=== PATIENT | male | born 1975 | race Caucasian/White ===

== ENCOUNTER 2017-01-31 | Emergency (ER) | payer OTHER ==
--- NOTE | 2017-01-31 02:51 | ED ORDER SUMMARY ---
..... Patient: ABHISHEK ROJO OrderSheet [facility] VisitID: [id number] [address] [place] [address] 42y, M Registration Date/Time: 01/31/2017 ORDER SHEET Weight: 196.4 kg (stated) Allergies: BENADRYL CREAM, PCN, Sulfa Antibiotics, Sertraline GENERAL ORDERS: MEDICATION ORDERS: Vistaril PO 50 mg (NOW) (02:11 01/31/2017 Damion Silva) (Ack 2:21 Mehdi R.N.) (2:25 Mehdi R.N.) IV FLUIDS: ORDER SHEET NOTES: [Electronically signed by Maria L Donahue R.N. (03:01 01/31/2017)] [Electronically signed by Michael Arnold Dr. (05:58 02/01/2017)] [Electronically locked/signed by Maria L Donahue R.N. (03:01 01/31/2017)]
--- NOTE | 2017-01-31 02:51 | ED ORDER SUMMARY ---
..... Patient: ABHISHEK ROJO OrderSheet [facility] VisitID: [id number] [address] [place] [address] 42y, M Registration Date/Time: 01/31/2017 ORDER SHEET Weight: 196.4 kg (stated) Allergies: BENADRYL CREAM, PCN, Sulfa Antibiotics, Sertraline GENERAL ORDERS: MEDICATION ORDERS: Vistaril PO 50 mg (NOW) (02:11 01/31/2017 Damion Silva) (Ack 2:21 Mehdi R.N.) (2:25 Mehdi R.N.) IV FLUIDS: ORDER SHEET NOTES: [Electronically signed by Maria L Donahue R.N. (03:01 01/31/2017)] [Electronically signed by Michael Arnold Dr. (05:58 02/01/2017)] [Electronically locked/signed by Maria L Donahue R.N. (03:01 01/31/2017)]
--- NOTE | 2017-01-31 02:51 | ED CLINICAL REPORT ---
Clinical Report - Physicians/Mid Levels [facility] [address] [place] [address] 01/31/2017 0:04 Patient: ABHISHEK ROJO Time Seen: 01:49; initial patient contact. Arrived- By private vehicle. Historian- patient. HISTORY OF PRESENT ILLNESS Chief Complaint: DYSPNEA and HISTORY OF ASTHMA. This started yesterday and is still present. It was gradual in onset. The dyspnea is described as mild. He has not had worsening of dyspnea with walking or exertion. No improvement of dyspnea with rest. The patient has had a cough. No sputum production, fever, sweating episodes, wheezing or chills. No dyspnea on exertion, chest pain or discomfort, calf pain or foot swelling. No anxiety, dizziness or palpitations. Similar symptoms previously: None. Recent medical care: The patient was seen recently in a clinic. ( On Abx for sinus infection). REVIEW OF SYSTEMS The patient has had a nasal discharge, sinus drainage, eye irritation, eye irritation and photophobia. No sore throat, nausea or vomiting. All systems otherwise negative, except as recorded above. PAST HISTORY Migraine Headache. Depression. Back Pain. Hypercholesterolemia. Asthma. Hypertension. Gastroesophageal Reflux Disease. ADDITIONAL SURGERIES: Adenoidectomy. Toe. Tympanostomy Tubes. Medications: Topamax Oral 100 mg, daily. Albuterol Sulfate HFA Inhalation. Lovastatin Oral 20 mg, daily. BuPROPion HCl Oral 150 mg (SR). Hydrocodone-Acetaminophen Oral 5 mg/500mg, 2 tabs, daily as needed. Antibiotic 1 pill, 2x a day, sinus and mouth infection, started yesterday. Allergies: BENADRYL CREAM. PCN. Sertraline. Sulfa Antibiotics. SOCIAL HISTORY Current some days smoker. Occasional alcohol use. No drug use. ADDITIONAL NOTES The nursing notes have been reviewed. PHYSICAL EXAM Vital Signs: 01/31/2017 01:50 BP: 141/84. HR: 75. RR: 15. O2 saturation: 97%. Temp: 97.9 F. Monroe-Kendrick pain scale: 4/10. Have been reviewed. Hypertensive. Heart rate normal. Respiratory rate normal. Temperature normal. Oxygen saturation normal. Appearance: Alert. No acute distress. Rt Eye: Right eye exam normal. Lt Eye: Eyelid edema. Moderately injected conjunctiva. Moderate exudate present. CVS: Normal heart rate and rhythm. Heart sounds normal. Respiratory: No respiratory distress. Breath sounds normal. Extremities: No lower extremity edema. Neuro: Oriented X 3. PROGRESS AND PROCEDURES Disposition: Discharged home in good and improved condition. Condition: good. CLINICAL IMPRESSION Acute mucopurulent and bacterial conjunctivitis of the left eye. Chronic seasonal allergic rhinitis. INSTRUCTIONS Your Current Medications: CONTINUE TAKING THE FOLLOWING MEDICATIONS: Albuterol Sulfate HFA Inhalation. Antibiotic* : 1 pill 2x a day, Started: yesterday, sinus and mouth infection. BuPROPion HCl Oral : 150 mg, SR. Hydrocodone-Acetaminophen Oral : 5 mg/500mg, 2 tabs daily, prn. Lovastatin Oral : 20 mg daily. Topamax Oral : 100 mg daily. Prescription Medications: Polytrim ophthalmic solution: instill 1 drop into the affected eye every 3 hours while awake for 7 days. Dispense five (5) mL. No refill. Substitution is permissible. Flonase nasal spray: 2 sprays to each nostril daily. Dispense one (1) unit. No refills. Substitution is permissible Follow-up: Follow up with your doctor in about two days. Call for an appointment. Screening today revealed the patient's blood pressure to be in the hypertensive range. The patient should follow up with a primary care provider for blood pressure management. (Electronically signed by Michael Arnold Dr. 02/01/2017 5:58)
--- NOTE | 2017-01-31 02:51 | ED NURSING NOTES ---
Clinical Report - Nurses [facility] [address] [place] [address] 01/31/2017 0:04 Patient: ABHISHEK ROJO TRIAGE Triage time 01:50. Acuity: LEVEL 4. Chief Complaint: (left eye swelling. dizziness (on-going problem but worse today)). Alert. No acute distress. --02:02 Maria L Donahue R.N. 01:50 01/31/17. BP: 141/84. HR: 75. RR: 15 (regular and unlabored). O2 saturation: 97% on room air. Temp: 97.9 F (oral). Mnoroe-Kendrick pain scale: 4/10. --02:02 Maria L Donahue R.N. Weight: 196.4 kg stated. Height/Length: 73 inches Per Patient. BMI: 57.1. --02:01 Maria L Donahue R.N. Medications Antibiotic 1 pill, 2x a day, sinus and mouth infection, started yesterday. --01:56 Maria L Donahue R.N. BuPROPion HCl Oral 150 mg (SR). Hydrocodone-Acetaminophen Oral 5 mg/500mg, 2 tabs, daily as needed. --01:58 Maria L Donahue R.N. Lovastatin Oral 20 mg, daily. --01:58 Maria L Donahue R.N. Albuterol Sulfate HFA Inhalation. --01:58 Maria L Donahue R.N. Topamax Oral 100 mg, daily. --01:59 Maria L Donahue R.N. Allergies BENADRYL CREAM. PCN. Sulfa Antibiotics. --01:59 Maria L Donahue R.N. Sertraline. --01:59 Maria L Donahue R.N. History Arrived by private vehicle. Historian: patient. Accompanied by family. [facility] PAST MEDICAL HX: Immunizations: up-to-date. SOCIAL HX: Smoker- current status unknown (hookcarol ann). Occasional alcohol use. No drug use. FUNCTIONAL ASSESSMENT: Functional assessment performed: uses cane. --02: Maria L Donahue R.N. PROBLEMS: Migraine Headache. Depression. Back Pain. Hypercholesterolemia. Asthma. Hypertension. Gastroesophageal Reflux Disease. --02:00 Maria L Donahue R.N. ADDITIONAL SURGERIES: Adenoidectomy. Toe. Tympanostomy Tubes. --02:00 Maria L Donahue R.N. Interventions ID band on patient. To treatment room. --02: Maria L Donahue R.N. PHYSICAL ASSESSMENT To room via wheelchair. Patient gowned. GENERAL / NEURO / PSYCH: Alert. Oriented X 4. Appears in no acute distress. HEENT: Mucous membranes are pink. RESPIRATORY: Respirations not labored. CVS: Capillary refill less than 2 seconds. --02: Maria L Donahue R.N. NURSING PROGRESS NOTES Head of bed elevated. Two patient identifiers checked. Call light placed in reach. Side rails up x 1. Bed placed in lowest position. Brakes of bed on. --02: Maria L Donahue R.N. Patient ready for evaluation- chart flagged. --02: Maria L Donahue R.N. 02:25 01/31/2017 Vistaril (HydrOXYzine Pamoate) PO Capsules 50 mg given. Allergies verified, confirmed 5 rights and sedative warning given to the patient. --02:25 Maria L Donahue R.N. DISPOSITION / DISCHARGE 03:00 01/31/17. BP: 124/80. HR: 77. RR: 15. O2 saturation: 96% on room air. Temp: deferred. Monroe-Kendrick pain scale: 2/10. --03:00 Maria L Donahue R.N. Condition at departure: improved. No learning barriers present. Discharge instructions provided and reviewed with the patient. Reviewed medication(s) side effects, precautions, dosing and course information. Prescription(s) given to the patient. Patient verbalized understanding. Written instructions provided in Danish. The patient was discharged home and accompanied by environmental project manager. He left the Emergency Department ambulatory and via private vehicle. Casino Floorperson driving. --03:01 Maria L Donahue R.N. Locked/Released at 01/31/2017 3:01 by Maria L Donahue R.N.
--- NOTE | 2017-01-31 02:51 | ED NURSING NOTES ---
Clinical Report - Nurses [facility] [address] [place] [address] 01/31/2017 0:04 Patient: ABHISHEK ROJO TRIAGE Triage time 01:50. Acuity: LEVEL 4. Chief Complaint: (left eye swelling. dizziness (on-going problem but worse today)). Alert. No acute distress. --02:02 Maria L Donahue R.N. 01:50 01/31/17. BP: 141/84. HR: 75. RR: 15 (regular and unlabored). O2 saturation: 97% on room air. Temp: 97.9 F (oral). Monroe-Kendrick pain scale: 4/10. --02:02 Maria L Donahue R.N. Weight: 196.4 kg stated. Height/Length: 73 inches Per Patient. BMI: 57.1. --02:01 Maria L Donahue R.N. Medications Antibiotic 1 pill, 2x a day, sinus and mouth infection, started yesterday. --01:56 Maria L Donahue R.N. BuPROPion HCl Oral 150 mg (SR). Hydrocodone-Acetaminophen Oral 5 mg/500mg, 2 tabs, daily as needed. --01:58 Maria L Donahue R.N. Lovastatin Oral 20 mg, daily. --01:58 Maria L Donahue R.N. Albuterol Sulfate HFA Inhalation. --01:58 Maria L Donahue R.N. Topamax Oral 100 mg, daily. --01:59 Maria L Donahue R.N. Allergies BENADRYL CREAM. PCN. Sulfa Antibiotics. --01:59 Maria L Donahue R.N. Sertraline. --01:59 Maria L Donahue R.N. History Arrived by private vehicle. Historian: patient. Accompanied by family. [facility] PAST MEDICAL HX: Immunizations: up-to-date. SOCIAL HX: Smoker- current status unknown (hookcarol ann). Occasional alcohol use. No drug use. FUNCTIONAL ASSESSMENT: Functional assessment performed: uses cane. --02: Maria L Donahue R.N. PROBLEMS: Migraine Headache. Depression. Back Pain. Hypercholesterolemia. Asthma. Hypertension. Gastroesophageal Reflux Disease. --02:00 Maria L Donahue R.N. ADDITIONAL SURGERIES: Adenoidectomy. Toe. Tympanostomy Tubes. --02:00 Maria L Donahue R.N. Interventions ID band on patient. To treatment room. --02: Maria L Donahue R.N. PHYSICAL ASSESSMENT To room via wheelchair. Patient gowned. GENERAL / NEURO / PSYCH: Alert. Oriented X 4. Appears in no acute distress. HEENT: Mucous membranes are pink. RESPIRATORY: Respirations not labored. CVS: Capillary refill less than 2 seconds. --02: Maria L Donahue R.N. NURSING PROGRESS NOTES Head of bed elevated. Two patient identifiers checked. Call light placed in reach. Side rails up x 1. Bed placed in lowest position. Brakes of bed on. --02: Maria L Donahue R.N. Patient ready for evaluation- chart flagged. --02: Maria L Donahue R.N. 02:25 01/31/2017 Vistaril (HydrOXYzine Pamoate) PO Capsules 50 mg given. Allergies verified, confirmed 5 rights and sedative warning given to the patient. --02:25 Maria L Donahue R.N. DISPOSITION / DISCHARGE 03:00 01/31/17. BP: 124/80. HR: 77. RR: 15. O2 saturation: 96% on room air. Temp: deferred. Monroe-Kendrick pain scale: 2/10. --03:00 Maria L Donahue R.N. Condition at departure: improved. No learning barriers present. Discharge instructions provided and reviewed with the patient. Reviewed medication(s) side effects, precautions, dosing and course information. Prescription(s) given to the patient. Patient verbalized understanding. Written instructions provided in Thai. The patient was discharged home and accompanied by manager office. He left the Emergency Department ambulatory and via private vehicle. Vice President Underwriting driving. --03:01 Maria L Donahue R.N. Locked/Released at 01/31/2017 3:01 by Maria L Donahue R.N.
--- NOTE | 2017-02-01 05:59 | ED MED RECONCILIATION SUMMARY ---
Patient: ABHISHEK ROJO Medication Reconciliation Report [facility] VisitID: [id number] [address] [place] [address] 42y, M Registration Date/Time: 01/31/2017 Weight: 196.4 kg Height/Length: 73 in. BMI: 57.1 ALLERGIES: BENADRYL CREAM, PCN, Sertraline, Sulfa Antibiotics The patient's Home Medications are listed below: CONTINUE TAKING THE FOLLOWING MEDICATIONS: Albuterol Sulfate HFA Inhalation Antibiotic 1 pill, 2x a day, sinus and mouth infection BuPROPion HCl Oral 150 mg, SR Hydrocodone-Acetaminophen Oral 5 mg/500mg, 2 tabs, daily Lovastatin Oral 20 mg, daily Topamax Oral 100 mg, daily The source(s) of the original Home Medication information: Not obtained. The following Medications were given to the patient in the Emergency Department: Vistaril [PO] PO 50 mg, administered: 01/31/2017 2:25:00 AM The following Medications were prescribed to the patient: Polytrim ophthalmic solution: instill 1 drop into the affected eye every 3 hours while awake for 7 days. Dispense five (5) mL. No refill. Substitution is permissible. -- Michael Arnold Dr. Flonasmelissa nasal spray: 2 sprays to each nostril daily. Dispense one (1) unit. No refills. Substitution is permissible -- Michael Arnold Dr.
--- NOTE | 2017-02-01 05:59 | ED MED RECONCILIATION SUMMARY ---
Patient: ABHISHEK ROJO Medication Reconciliation Report [facility] VisitID: [id number] [address] [place] [address] 42y, M Registration Date/Time: 01/31/2017 Weight: 196.4 kg Height/Length: 73 in. BMI: 57.1 ALLERGIES: BENADRYL CREAM, PCN, Sertraline, Sulfa Antibiotics The patient's Home Medications are listed below: CONTINUE TAKING THE FOLLOWING MEDICATIONS: Albuterol Sulfate HFA Inhalation Antibiotic 1 pill, 2x a day, sinus and mouth infection BuPROPion HCl Oral 150 mg, SR Hydrocodone-Acetaminophen Oral 5 mg/500mg, 2 tabs, daily Lovastatin Oral 20 mg, daily Topamax Oral 100 mg, daily The source(s) of the original Home Medication information: Not obtained. The following Medications were given to the patient in the Emergency Department: Vistaril [PO] PO 50 mg, administered: 01/31/2017 2:25:00 AM The following Medications were prescribed to the patient: Polytrim ophthalmic solution: instill 1 drop into the affected eye every 3 hours while awake for 7 days. Dispense five (5) mL. No refill. Substitution is permissible. -- Michael Arnold Dr. Flonasmelissa nasal spray: 2 sprays to each nostril daily. Dispense one (1) unit. No refills. Substitution is permissible -- Michael Arnold Dr.
--- NOTE | 2017-02-01 05:59 | ED MAR SUMMARY ---
..... Medication Administration Record [facility] [address] [place] [address] Patient: ABHISHEK ROJO Visit ID: [id number] 42y, M Weight: 196.4 kg Height/Length: 73 in BMI: 57.1 ALLERGIES: Sertraline, BENADRYL CREAM, PCN, Sulfa Antibiotics Given 02:25 01/31/2017 Maria L Donahue R.N. Medication Administered: VISTARIL [PO] (HYDROXYZINE PAMOATE), Dose: 50 mg Capsules PO. Medication Ordered: Vistaril PO 50 mg (NOW).
--- NOTE | 2017-02-01 05:59 | ED MAR SUMMARY ---
..... Medication Administration Record [facility] With [facility] [address] [place] [address] Patient: ABHISHEK ROJO Visit ID: [id number] 42y, M Weight: 196.4 kg Height/Length: 73 in BMI: 57.1 ALLERGIES: Sertraline, BENADRYL CREAM, PCN, Sulfa Antibiotics Given 02:25 01/31/2017 Maria L Donahue R.N. Medication Administered: VISTARIL [PO] (HYDROXYZINE PAMOATE), Dose: 50 mg Capsules PO. Medication Ordered: Vistaril PO 50 mg (NOW).
--- NOTE | 2017-02-01 05:59 | ED DISCHARGE INSTRUCTIONS ---
Patient: ABHISHEK ROJO General Instructions [facility] VisitID: [id number] [place] [address] 42y, M Registration Date/Time: 01/31/2017 Chronic seasonal allergic rhinitis. INSTRUCTIONS Your Current Medications: CONTINUE TAKING THE FOLLOWING MEDICATIONS: Albuterol Sulfate HFA Inhalation. Antibiotic* : 1 pill 2x a day, Started: yesterday, sinus and mouth infection. BuPROPion HCl Oral : 150 mg, SR. Hydrocodone-Acetaminophen Oral : 5 mg/500mg, 2 tabs daily, prn. Lovastatin Oral : 20 mg daily. Topamax Oral : 100 mg daily. Prescription Medications: Polytrim ophthalmic solution: instill 1 drop into the affected eye every 3 hours while awake for 7 days. Dispense five (5) mL. No refill. Substitution is permissible. Flonase nasal spray: 2 sprays to each nostril daily. Dispense one (1) unit. No refills. Substitution is permissible Follow-up: Follow up with your doctor in about two days. Call for an appointment. Screening today revealed the patient's blood pressure to be in the hypertensive range. The patient should follow up with a primary care provider for blood pressure management. ADDITIONAL INFORMATION Nasal Allergy Nasal Allergy, also called Allergic Rhinitis occurs after exposure to pollen, molds, mildew, animal dander (scales from animal skin, hair and feathers), dust, smoke and fumes. (These are called allergens). When pollen causes a nasal allergy it is commonly called Hay Fever. When these particles contact the lining of the nose, eyes, eyelids, sinuses or throat, they cause the cells to release a chemical called histamine. Histamine may cause a watery discharge from the eyes or nose. It may also cause violent sneezing, nasal congestion, itching of the eyes, nose, throat and mouth. Prevention: Nasal allergy cannot be cured but symptoms can be reduced. Avoid or reduce exposure to the allergen when possible, by the following measures: POLLEN Stay indoors on hot windy days during pollen season Keep windows and doors closed Use an air conditioner with an electrostatic filter DUST, MOLD & MILDEW Follow these measures, especially in the bedroom: When cleaning use vacuum lucerne farmer, oiled mops and damp cloths; dont stir up the dust. Once a week clean the wilkins, woodwork and floors with a damp mop and vacuum carpets. Once a year clean the bed frame and springs (do this outside). Cover the box springs with plastic. Do not use mattress pads. Remove stuffed chairs and rugs from the bedroom. Discard old moldy books, furniture and bedding. Use synthetic fabrics for furniture, curtains and bedding. Avoid quilts, comforters, and stuffed toys. ANIMAL DANDER Remove all indoor pets (except fish and reptiles). Avoid all contact with furry animals. Avoid down-stuffed pillows and coats. Some persons are also sensitive to wool and should avoid it. OTHER IRRITANTS Do not smoke and avoid the smoke of others. Some persons are sensitive to cosmetic powder, baby powder and powdered laundry detergents. Therefore, these powders should be avoided. Home Care: DECONGESTANT pills and sprays (Sudafed, NeoSynephrine, Afrin), reduce tissue swelling and watery discharge. Overuse of nasal decongestant sprays may make symptoms worse. Do not use these more often than recommended. ANTIHISTAMINES block the release of histamine during the allergic response. Antihistamines are more effective when taken BEFORE symptoms develop. Unless a prescription antihistamine was prescribed, you may take CLARITIN (loratadine). (Claritin is an [id number] antihistamine that does not cause drowsiness.) STEROID nasal sprays (Beconase, Vancenase, Nasalide) or oral steroids (Prednisone) may also be prescribed for more severe symptoms. These help to reduce the local inflammation which adds to the allergic response. If you have ASTHMA, pollen season may make your asthma symptoms worse. It is important that you use your asthma medicines as directed during this time to prevent or treat attacks. Some persons with asthma have a worsening of their asthma symptoms when taking antihistamines. If you notice this, stop the antihistamines and notify your doctor. Follow Up with your doctor or as directed by our staff if your symptoms are not improving with the treatment advised. Get Prompt Medical Attention if any of the following occur: Facial or sinus pain or colored drainage from the nose Severe headache or ear pain Fever of 100.4F (38C) or higher, or as directed by your healthcare provider Wheezing or trouble breathing (If you already know you have asthma, return if your asthma symptoms do not respond to the usual doses of your medicine) Cough with lots of colored sputum (mucus) Conjunctivitis, Bacterial You have a bacterial infection in the membranes covering the eye. The most common symptoms include a thick discharge from the eye, swollen eyelids, redness, eyelids sticking together upon awakening, and a gritty or scratchy feeling in the eye. The infection takes about 7-10 days to resolve with treatment. Home Care: Use prescribed eyedrops or ointment as directed to treat the infection. Apply a warm pack (towel soaked in warm water) to the affected eye 3-4 times a day. Do this just before applying medicine to the eye. Use a warm, wet cloth to wipe away crusting of the eyelids in the morning. This is caused by mucus drainage during the night. You may also use saline irrigating solution or artificial tears to rinse away mucus inside the eye. Do not put a patch over the eye. Wash your hands before and after touching the infected eye. This is to prevent spreading the infection to the other eye, and to other people. Do not share your towels or washcloths with others. You may use acetaminophen (Tylenol) or ibuprofen (Motrin, Advil) to control pain, unless another medicine was prescribed. [NOTE: If you have chronic liver or kidney disease or ever had a stomach ulcer or GI bleeding, talk with your doctor before using these medicines.] Do not wear contact lenses until your eyes have healed and all symptoms are gone. Follow Up with your doctor or this facility as directed, or if there has not been improvement within 5 days. Get Prompt Medical Attention if any of the following occur: Worsening vision Increasing pain in the eye Increasing swelling or redness of the eyelid Redness spreading around the eye Trimethoprim Sulfate, Polymyxin B Sulfate Eye drops, solution What is this medicine? POLYMYXIN B and TRIMETHOPRIM (shar i MIX in B and trye METH oh prim) eye drops treat certain eye infections caused by bacteria. How should I use this medicine? This medicine is used in the eye. Follow the directions on the prescription label. Wash your hands before and after use. Tilt your head back slightly. Pull your lower eyelid down gently to form a pouch. Do not touch the tip of the dropper to your eye, fingertips, or other surface. Squeeze the prescribed number of drops into the pouch. Close the eye gently to spread the drops. Use your medicine at regular intervals. Do not take your medicine more often than directed. Use all of your medicine as directed even if you think your are better. Do not skip doses or stop your medicine early. Talk to your noodle maker regarding the use of this medicine in children. While this drug may be prescribed for children and infants for selected conditions, precautions do apply. What side effects may I notice from receiving this medicine? Side effects that you should report to your doctor or health child care specialist as soon as possible: burning, stinging, or swelling change in vision or blurred vision that will not go away eye pain itching and redness rash Side effects that usually do not require medical attention (report to your doctor or health child care specialist if they continue or are bothersome): temporary blurred vision after applying temporary watering or stinging What may interact with this medicine? Interactions are not expected. Do not use any other eye products without advice of your doctor or health child care specialist. What if I miss a dose? If you miss a dose, use it as soon as you can. If it is almost time for your next dose, use only that dose. Do not use double or extra doses. Where should I keep my medicine? Keep out of the reach of children. Store at room temperature 15 to 25 degrees C (59 to 77 degrees F). Protect from light. To prevent the spread of infection, it is best to throw away any unused eye drops after you finish the course of treatment. Throw away any unused medicine after the expiration date. What should I tell my health care provider before I take this medicine? They need to know if you have any of these conditions: wear contact lenses an unusual or allergic reaction to polymyxin B, trimethoprim, other medicines, foods, dyes, or preservatives or trying to get breast-feeding What should I watch for while using this medicine? Check with your doctor or health child care specialist if your condition does not get better after 5 days, or if it gets worse. If you wear contact lenses, ask when you can use your lenses again. A burning or stinging reaction that does not go away may mean you are allergic to this product. Stop use and call your doctor or health child care specialist. To prevent the spread of infection, do not share eye products or other personal items with anyone else. Fluticasone Propionate Nasal spray, solution What is this medicine? FLUTICASONE (floo TIK a sone) is a corticosteroid. It helps decrease inflammation in your nose. This medicine is used to treat the symptoms of allergies like sneezing, itching, and runny or stuffy nose. How should I use this medicine? This medicine is for use in the nose. Follow the directions on your prescription label. This medicine works best if used regularly. Do not use more often than directed. Make sure that you are using your nasal spray correctly. Ask you doctor or health care provider if you have any questions. Talk to your noodle maker regarding the use of this medicine in children. While this drug may be prescribed for children as young as 4 years old for selected conditions, precautions do apply. What side effects may I notice from receiving this medicine? Side effects that you should report to your doctor or health child care specialist as soon as possible: allergic reactions like skin rash, itching or hives, swelling of the face, lips, or tongue changes in vision flu-like symptoms white patches or sores in the mouth or nose Side effects that usually do not require medical attention (report to your doctor or health child care specialist if they continue or are bothersome): burning or irritation inside the nose or throat cough headache nosebleed unusual taste or smell What may interact with this medicine? ketoconazole metyrapone some medicines for HIV vaccines What if I miss a dose? If you miss a dose, use it as soon as you remember. If it is almost time for your next dose, use only that dose and continue with your regular schedule. Do not use double or extra doses. Where should I keep my medicine? Keep out of the reach of children. Store at room temperature between 15 and 30 degrees C (59 and 86 degrees F). Throw away any unused medicine after the expiration date. What should I tell my health care provider before I take this medicine? They need to know if you have any of these conditions: infection, like tuberculosis, herpes, or fungal infection recent surgery on nose or sinuses taking corticosteroid by mouth an unusual or allergic reaction to fluticasone, steroids, other medicines, foods, dyes, or preservatives or trying to get breast-feeding What should I watch for while using this medicine? Visit your doctor or health child care specialist for regular checks on your progress. Some symptoms may improve within 12 hours after starting use. Check with your doctor or health child care specialist if there is no improvement in your condition after 3 weeks of use. Do not come in contact with people who have chickenpox or the measles while you are taking this medicine. If you do, call your doctor right away. You have been given the following additional information: Allergic Rhinitis Conjunctivitis, Bacterial Trimethoprim Sulfate, Polymyxin B Sulfate Eye drops, solution Fluticasone Propionate Nasal spray, solution (Electronically signed by Michael Arnold Dr. 02/01/2017 5:58)
--- NOTE | 2017-02-01 05:59 | ED DISCHARGE INSTRUCTIONS ---
Patient: ABHISHEK ROJO General Instructions [facility] VisitID: [id number] [place] [address] 42y, M Registration Date/Time: 01/31/2017 Chronic seasonal allergic rhinitis. INSTRUCTIONS Your Current Medications: CONTINUE TAKING THE FOLLOWING MEDICATIONS: Albuterol Sulfate HFA Inhalation. Antibiotic* : 1 pill 2x a day, Started: yesterday, sinus and mouth infection. BuPROPion HCl Oral : 150 mg, SR. Hydrocodone-Acetaminophen Oral : 5 mg/500mg, 2 tabs daily, prn. Lovastatin Oral : 20 mg daily. Topamax Oral : 100 mg daily. Prescription Medications: Polytrim ophthalmic solution: instill 1 drop into the affected eye every 3 hours while awake for 7 days. Dispense five (5) mL. No refill. Substitution is permissible. Flonase nasal spray: 2 sprays to each nostril daily. Dispense one (1) unit. No refills. Substitution is permissible Follow-up: Follow up with your doctor in about two days. Call for an appointment. Screening today revealed the patient's blood pressure to be in the hypertensive range. The patient should follow up with a primary care provider for blood pressure management. ADDITIONAL INFORMATION Nasal Allergy Nasal Allergy, also called Allergic Rhinitis occurs after exposure to pollen, molds, mildew, animal dander (scales from animal skin, hair and feathers), dust, smoke and fumes. (These are called allergens). When pollen causes a nasal allergy it is commonly called Hay Fever. When these particles contact the lining of the nose, eyes, eyelids, sinuses or throat, they cause the cells to release a chemical called histamine. Histamine may cause a watery discharge from the eyes or nose. It may also cause violent sneezing, nasal congestion, itching of the eyes, nose, throat and mouth. Prevention: Nasal allergy cannot be cured but symptoms can be reduced. Avoid or reduce exposure to the allergen when possible, by the following measures: POLLEN Stay indoors on hot windy days during pollen season Keep windows and doors closed Use an air conditioner with an electrostatic filter DUST, MOLD & MILDEW Follow these measures, especially in the bedroom: When cleaning use vacuum theater projectionist, oiled mops and damp cloths; dont stir up the dust. Once a week clean the wilkins, woodwork and floors with a damp mop and vacuum carpets. Once a year clean the bed frame and springs (do this outside). Cover the box springs with plastic. Do not use mattress pads. Remove stuffed chairs and rugs from the bedroom. Discard old moldy books, furniture and bedding. Use synthetic fabrics for furniture, curtains and bedding. Avoid quilts, comforters, and stuffed toys. ANIMAL DANDER Remove all indoor pets (except fish and reptiles). Avoid all contact with furry animals. Avoid down-stuffed pillows and coats. Some persons are also sensitive to wool and should avoid it. OTHER IRRITANTS Do not smoke and avoid the smoke of others. Some persons are sensitive to cosmetic powder, baby powder and powdered laundry detergents. Therefore, these powders should be avoided. Home Care: DECONGESTANT pills and sprays (Sudafed, NeoSynephrine, Afrin), reduce tissue swelling and watery discharge. Overuse of nasal decongestant sprays may make symptoms worse. Do not use these more often than recommended. ANTIHISTAMINES block the release of histamine during the allergic response. Antihistamines are more effective when taken BEFORE symptoms develop. Unless a prescription antihistamine was prescribed, you may take CLARITIN (loratadine). (Claritin is an nkag-vmc-oxizbgn antihistamine that does not cause drowsiness.) STEROID nasal sprays (Beconase, Vancenase, Nasalide) or oral steroids (Prednisone) may also be prescribed for more severe symptoms. These help to reduce the local inflammation which adds to the allergic response. If you have ASTHMA, pollen season may make your asthma symptoms worse. It is important that you use your asthma medicines as directed during this time to prevent or treat attacks. Some persons with asthma have a worsening of their asthma symptoms when taking antihistamines. If you notice this, stop the antihistamines and notify your doctor. Follow Up with your doctor or as directed by our staff if your symptoms are not improving with the treatment advised. Get Prompt Medical Attention if any of the following occur: Facial or sinus pain or colored drainage from the nose Severe headache or ear pain Fever of 100.4F (38C) or higher, or as directed by your healthcare provider Wheezing or trouble breathing (If you already know you have asthma, return if your asthma symptoms do not respond to the usual doses of your medicine) Cough with lots of colored sputum (mucus) Conjunctivitis, Bacterial You have a bacterial infection in the membranes covering the eye. The most common symptoms include a thick discharge from the eye, swollen eyelids, redness, eyelids sticking together upon awakening, and a gritty or scratchy feeling in the eye. The infection takes about 7-10 days to resolve with treatment. Home Care: Use prescribed eyedrops or ointment as directed to treat the infection. Apply a warm pack (towel soaked in warm water) to the affected eye 3-4 times a day. Do this just before applying medicine to the eye. Use a warm, wet cloth to wipe away crusting of the eyelids in the morning. This is caused by mucus drainage during the night. You may also use saline irrigating solution or artificial tears to rinse away mucus inside the eye. Do not put a patch over the eye. Wash your hands before and after touching the infected eye. This is to prevent spreading the infection to the other eye, and to other people. Do not share your towels or washcloths with others. You may use acetaminophen (Tylenol) or ibuprofen (Motrin, Advil) to control pain, unless another medicine was prescribed. [NOTE: If you have chronic liver or kidney disease or ever had a stomach ulcer or GI bleeding, talk with your doctor before using these medicines.] Do not wear contact lenses until your eyes have healed and all symptoms are gone. Follow Up with your doctor or this facility as directed, or if there has not been improvement within 5 days. Get Prompt Medical Attention if any of the following occur: Worsening vision Increasing pain in the eye Increasing swelling or redness of the eyelid Redness spreading around the eye Trimethoprim Sulfate, Polymyxin B Sulfate Eye drops, solution What is this medicine? POLYMYXIN B and TRIMETHOPRIM (shar i MIX in B and trye METH oh prim) eye drops treat certain eye infections caused by bacteria. How should I use this medicine? This medicine is used in the eye. Follow the directions on the prescription label. Wash your hands before and after use. Tilt your head back slightly. Pull your lower eyelid down gently to form a pouch. Do not touch the tip of the dropper to your eye, fingertips, or other surface. Squeeze the prescribed number of drops into the pouch. Close the eye gently to spread the drops. Use your medicine at regular intervals. Do not take your medicine more often than directed. Use all of your medicine as directed even if you think your are better. Do not skip doses or stop your medicine early. Talk to your sand drier regarding the use of this medicine in children. While this drug may be prescribed for children and infants for selected conditions, precautions do apply. What side effects may I notice from receiving this medicine? Side effects that you should report to your doctor or health child care centre director as soon as possible: burning, stinging, or swelling change in vision or blurred vision that will not go away eye pain itching and redness rash Side effects that usually do not require medical attention (report to your doctor or health child care centre director if they continue or are bothersome): temporary blurred vision after applying temporary watering or stinging What may interact with this medicine? Interactions are not expected. Do not use any other eye products without advice of your doctor or health child care centre director. What if I miss a dose? If you miss a dose, use it as soon as you can. If it is almost time for your next dose, use only that dose. Do not use double or extra doses. Where should I keep my medicine? Keep out of the reach of children. Store at room temperature 15 to 25 degrees C (59 to 77 degrees F). Protect from light. To prevent the spread of infection, it is best to throw away any unused eye drops after you finish the course of treatment. Throw away any unused medicine after the expiration date. What should I tell my health care provider before I take this medicine? They need to know if you have any of these conditions: wear contact lenses an unusual or allergic reaction to polymyxin B, trimethoprim, other medicines, foods, dyes, or preservatives or trying to get breast-feeding What should I watch for while using this medicine? Check with your doctor or health child care centre director if your condition does not get better after 5 days, or if it gets worse. If you wear contact lenses, ask when you can use your lenses again. A burning or stinging reaction that does not go away may mean you are allergic to this product. Stop use and call your doctor or health child care centre director. To prevent the spread of infection, do not share eye products or other personal items with anyone else. Fluticasone Propionate Nasal spray, solution What is this medicine? FLUTICASONE (floo TIK a sone) is a corticosteroid. It helps decrease inflammation in your nose. This medicine is used to treat the symptoms of allergies like sneezing, itching, and runny or stuffy nose. How should I use this medicine? This medicine is for use in the nose. Follow the directions on your prescription label. This medicine works best if used regularly. Do not use more often than directed. Make sure that you are using your nasal spray correctly. Ask you doctor or health care provider if you have any questions. Talk to your sand drier regarding the use of this medicine in children. While this drug may be prescribed for children as young as 4 years old for selected conditions, precautions do apply. What side effects may I notice from receiving this medicine? Side effects that you should report to your doctor or health child care centre director as soon as possible: allergic reactions like skin rash, itching or hives, swelling of the face, lips, or tongue changes in vision flu-like symptoms white patches or sores in the mouth or nose Side effects that usually do not require medical attention (report to your doctor or health child care centre director if they continue or are bothersome): burning or irritation inside the nose or throat cough headache nosebleed unusual taste or smell What may interact with this medicine? ketoconazole metyrapone some medicines for HIV vaccines What if I miss a dose? If you miss a dose, use it as soon as you remember. If it is almost time for your next dose, use only that dose and continue with your regular schedule. Do not use double or extra doses. Where should I keep my medicine? Keep out of the reach of children. Store at room temperature between 15 and 30 degrees C (59 and 86 degrees F). Throw away any unused medicine after the expiration date. What should I tell my health care provider before I take this medicine? They need to know if you have any of these conditions: infection, like tuberculosis, herpes, or fungal infection recent surgery on nose or sinuses taking corticosteroid by mouth an unusual or allergic reaction to fluticasone, steroids, other medicines, foods, dyes, or preservatives or trying to get breast-feeding What should I watch for while using this medicine? Visit your doctor or health child care centre director for regular checks on your progress. Some symptoms may improve within 12 hours after starting use. Check with your doctor or health child care centre director if there is no improvement in your condition after 3 weeks of use. Do not come in contact with people who have chickenpox or the measles while you are taking this medicine. If you do, call your doctor right away. You have been given the following additional information: Allergic Rhinitis Conjunctivitis, Bacterial Trimethoprim Sulfate, Polymyxin B Sulfate Eye drops, solution Fluticasone Propionate Nasal spray, solution (Electronically signed by Michael Arnold Dr. 02/01/2017 5:58)
== END 2017-01-31 02:59 | disposition home or self-care (01) ==
LOC: ED SRH
DX: H10.022 Other mucopurulent conjunctivitis, left eye (principal); J30.2 Other seasonal allergic rhinitis; J45.909 Unspecified asthma, uncomplicated; I10 Essential (primary) hypertension; K21.9 Gastro-esophageal reflux disease without esophagitis; Z79.899 Other long term (current) drug therapy; Z88.0 Allergy status to penicillin; Z88.2 Allergy status to sulfonamides